=== PATIENT | female | born 1970 | race Two or more races ===

== ENCOUNTER 2019-02-05 08:38 | Outpatient (CLI) | payer OTHER ==
[~2019-02-05] VITALS: Ht 165.1 cm; Wt 51.7 kg
[2019-02-05] MEDS ORDERED: MUCINEX600 MG PO (10:45)
[2019-02-05] MEDS ORDERED: CEFUROXIME500 MG PO (10:45)
== END 2019-02-05 09:45 | disposition home or self-care (01) ==
LOC: OFIC 805 08:38
DX: J31.0 Chronic rhinitis (principal); R05 Cough; J32.4 Chronic pansinusitis; G44.221 Chronic tension-type headache, intractable; J34.2 Deviated nasal septum

== ENCOUNTER 2019-02-21 11:44 | Outpatient (CLI) | payer OTHER ==
[~2019-02-21 11:44] MED LIST: CEFUROXIME500 MG PO; MUCINEX600 MG PO
[2019-02-26] MEDS ORDERED: ZYRTEC10 MG PO (10:33)
== END 2019-02-21 11:48 | disposition home or self-care (01) ==
LOC: TOM 11:44
DX: J32.4 Chronic pansinusitis (principal)

== ENCOUNTER → 2019-02-26 | Outpatient (CLI) | payer OTHER ==
[~2019-02-26] VITALS: Ht 152.4 cm; Wt 51.7 kg
[~2019-02-26] MED LIST changes: +ZYRTEC10 MG PO
== END | disposition home or self-care (01) ==
LOC: OFIC 805 07:30 → TOM 07:30 → OFIC 805 08:00
DX: J31.0 Chronic rhinitis (principal); J32.4 Chronic pansinusitis; G44.89 Other headache syndrome; J34.2 Deviated nasal septum; J34.89 Other specified disorders of nose and nasal sinuses

== ENCOUNTER 2021-07-23 11:03 | Emergency (ER) | payer OTHER ==
[~2021-07-23] VITALS: Ht 167.6 cm; Wt 52.2 kg
[2021-07-23] MEDS ORDERED: PREMPRO 0.45-11 EACH (11:50)
== END 2021-07-23 14:18 | disposition home or self-care (01) ==
LOC: ER 11:03
DX: M54.50 Low back pain, unspecified (principal)